=== PATIENT | male | born 1960 | race Caucasian/White ===

== ENCOUNTER → 2025-08-02 | Outpatient (CLI) | payer MEDICAID, SELFPAY ==
--- NOTE | 2025-08-02 15:45 | XR_ITS ---
EXAMINATION: MRI shoulder, right without intravenous contrast Date and time: August 02, 2025, 1533 hours INDICATIONS: Patient fell April 22, 2025 with injury of the shoulder, shoulder pain decreased range of motion stiffness swelling TECHNIQUE AND FINDINGS: Multiple axial sagittal coronal MR shoulder images obtained without contrast 4 cm full-thickness rotator cuff tear There is retraction of the musculotendinous junction Distance between the humeral head and the acromion 6.6 mm Prominent tendinosis of the rotator cuff Subscapularis tendon is intact No humeral head fracture or bone contusion Moderate osteoarthritis glenohumeral joint Biceps Superior labral anchor intact, long head of the biceps in the bicipital groove Labrum margins appear intact IMPRESSION: 4 cm full-thickness rotator cuff tear
== END | disposition home or self-care (01) ==
LOC: SMRI 14:55
PROVIDERS: PCP Family Medicine; Referring Provider Physician Assistant; Visit Provider Physician Assistant
DX: S46.011A Strain of muscle(s) and tendon(s) of the rotator cuff of right shoulder, initial encounter (principal); W19.XXXA Unspecified fall, initial encounter
CPT/HCPCS: 73221

== ENCOUNTER 2025-09-29 12:10 | Day surgery (SDC) | payer MEDICAID, SELFPAY ==
--- NOTE | 2025-09-28 12:53 | EKG_ITS ---
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
[2025-09-28 13:00] VITALS: BMI 24.5
[2025-09-28 16:05] LABS: Basophils # (Auto) 0.1 Thou/mm3 (0.0-0.2); Basophils % (Auto) 1 % (0-2.5); Eosinophils # (Auto) 0.3 Thou/mm3 (0.0-0.5); Eosinophils % (Auto) 5 % (0-10); Hematocrit 43.3 % (41.0-53.0); Hemoglobin 15.1 g/dL (13.5-16.0); Immature Granulocytes Auto 0.01 Thou/mm3 (0.00-0.00); Lymphocytes # (Auto) 1.9 Thou/mm3 (1.0-4.8); Lymphocytes % (Auto) 31 % (10-50); Mean Corpuscular HGB Conc 34.9 g/dl (31.0-37.0); Mean Corpuscular Hemoglobin 32.6 pg (25.0-35.0); Mean Corpuscular Volume 94 fL (80-100); Monocytes # (Auto) 0.4 Thou/mm3 (0.0-0.8); Monocytes % (Auto) 7 % (0-12); Neutrophils # (Auto) 3.4 Thou/mm3 (1.8-7.7); Neutrophils % (Auto) 56 % (37-80); Nucleated Red Blood Cell # 0.00 Thou/mm3 (0.00-0.00); Nucleated Red Blood Cell % 0 /100 WBC (0); Platelet Count 255 Thou/mm3 (140-440); RDW Standard Deviation 43.1 fL (35.1-43.9); Red Blood Count 4.63 Miln/mm3 (4.50-5.90); White Blood Count 6.0 Thou/mm3 (3.8-10.6)
[2025-09-28 16:08] LABS: INR 1.0 (0.9-1.3); Partial Thromboplastin Time 27.8 Seconds (22.0-36.0); Prothrombin Time 10.6 Seconds (9.0-12.2)
[2025-09-28 16:20] LABS: Alanine Aminotransferase 14 U/L (10-49); Albumin, Serum 4.8 gm/dL (3.4-4.8); Albumin/Globulin Ratio 1.5 (1.2-2.2); Alkaline Phosphatase 98 U/L (46-116); Anion Gap 11 (7-16); Aspartate Amino Transferase 21 U/L (0-34); BUN/Creatinine Ratio 18 Ratio (12-20); Bilirubin,Total 0.6 mg/dL (0.3-1.2); Blood Urea Nitrogen 16 mg/dL (9-23); Calcium 9.4 mg/dL (8.3-10.6); Calcium (Corrected) 9.4 mg/dL (8.5-10.1); Carbon Dioxide 26.6 mMol/L (20.0-31.0); Chloride 105 mMol/L (98-107); Creatinine (Component) 0.9 mg/dL (0.6-1.3); Estimated Creatinine Clearance 63.2 mL/min (>60); Globulin 3.2 gm/dL (2.3-3.5); Glucose 90 mg/dL (74-106); Osmolality,Calculated 286 (275-295); Potassium 4.2 mMol/L (3.4-5.1); Sodium 143 mMol/L (136-145); Total Protein 8.0 gm/dL (5.7-8.2); eGFR > 60 See Note
[2025-09-29] VITALS (8 sets, daily range): BP systolic 125–139; BP diastolic 72–91; PULSE 57–78; RESP 12–18; TEMP 36.2–36.4; O2SAT 95–100; BMI 24.3
--- NOTE | 2025-09-29 15:07 | PD.SUROPNT ---
Date of Procedure 09/29/25 Pre Op Diagnosis 1. Right rotator cuff tear 2 right shoulder impingement syndrome Post Op Diagnosis Same Procedure 1. Excision lateral end of the clavicle 2. Excision coracoacromial ligament 3. Acromioplasty 4. Repair of rotator cuff 5. 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 Beside that the anterior acromial process was touching the rotator cuff. The coracoacromial ligament was also abutting the rotator cuff. The rotator cuff was torn Procedure Description The patient was given general endotracheal anesthesia. Right shoulder block was also given. Once satisfactory anesthesia was achieved patient was put in about 45?? sitting position with sandbag underneath the right shoulder blade. The part was thoroughly prepped and draped. A skin incision was made at the AC joint extending proximally towards the neck for a half inches and distally towards the arm for about couple of inches. Deeper dissection was carried out. Bleeding vessels were electrocoagulated as and when encountered. The soft tissue was reflected. Following that AC joint was exposed and AC joint was exposed. It revealed quite arthritic AC joint with inferior spur present coming out from lateral end of the clavicle. The deltoid muscle was reflected from the anterior and lateral aspect of the acromial process. It revealed a 2 mm anterior osteophytes and 2 mm lateral osteophytes coming out from the acromial process. Following that a periosteal elevator was placed underneath the lateral end of the clavicle and lateral 3-4 mm was excised. The coracoacromial ligament was removed. With the help of curved osteotome the undersurface of the Acromial processes was chiseled out. That made more room between the superior surface of the head of the humerus and undersurface of the acromial process. Following that the rotator cuff was inspected. It revealed big oval tear, however most of the fibers were attached to the greater tuberosity. Wound was irrigated with antibiotic solution every 4-5 minutes. The left shoulder was manipulated at this time. The rotator cuff tear was repaired with 2-0 Vicryl. 2 drill holes were made on the acromial process and deltoid muscle was stitched back to it. Some reinforcement sutures were placed. The subcutaneous tissue was then closed with the help of 2-0 Vicryl and 3-0 Vicryl in layers. The subcu tissue was closed with the help of Monocryl. After cleaning the wound with hydrogel proximal solution and sterile dressing was applied. Prineo tape was applied. Patient was taken to the recovery room in good condition. Estimated blood loss 20 mL. Prognosis in this case is good. Anesthesia GETA and other Pathology / specimen None Estimated Blood Loss 20 Surgeon Cole Donaldson MD Surgical Staff Operation Date: 09/29/25 14:00 Case Staff Anesthesiologist: Gonzalo Lynch RNdirector of plant operations: Frieda Singh
--- NOTE | 2025-09-29 15:25 | SUR.PHASEI ---
1525: Pt. AAOx4, vitals stable, breathing unlabored, no complaint of pain or nausea, dressing to right shoulder CDI, no active bleed noted, bilateral radial pulses strong and regular, cap refill to bilateral hands less than 3 seconds, report received from MD Lynch and Sang MAK.
--- NOTE | 2025-09-29 15:29 | ESHP_ITS ---
RE: DIMITRI ARCOS : 1960 DATE OF ADMISSION: 09/29/2025 Patient came to my office on 09/28/2025 for detailed preop history and physical examination. HISTORY OF PRESENT COMPLAINT: Patient presented to me earlier with a history of pain in the left shoulder. Pain radiates towards the arm as well as towards the neck. Patient is unable to sleep. Patient graded intensity of pain to be 8-9 out of 10. Unable to raise the right arm above the shoulder level. Quality of life and activity of daily living is affected. Patient wants something to be done about it. PAST MEDICAL HISTORY: No history of diabetes mellitus, high blood pressure, asthma, seizure, chest pain, myocardial infarction, bleeding disorder. PAST SURGICAL HISTORY: Nil. DRUG HISTORY: Nil. FAMILY HISTORY AND SOCIAL HISTORY: Noncontributory. PHYSICAL EXAMINATION: GENERAL: Normal-built person. VITAL SIGNS: Pulse 84 per minute. Blood pressure 136/68. NECK: Soft, supple, no mass felt. Trachea is centrally placed. CARDIOVASCULAR SYSTEM: First and second heart sound normal. No murmur heard. RESPIRATORY SYSTEM: Bilateral vesicular breath sounds. Chest clear. ABDOMINAL EXAMINATION: Soft, scaphoid. No mass felt. Bowel sounds present. EXTREMITIES: Right Shoulder Examination: Revealed 2+ tenderness at AC joint and also at subacromial subbursal space. Active range of motion 0-80 degrees of abduction, 0-80 degrees of forward flexion. No further range of motion is possible. Internal rotation is severely restricted and painful. Randi test, drawer Randi test, drop arm test and impingement tests are positive. MRI SCAN: Confirms DJD at AC joint with torn rotator cuff and coracoacromial ligament was abutting the rotator cuff. Since patient is symptomatic and affecting quality of life, therefore right rotator cuff repair with Miriam procedure was discussed and advised. With the help of pictures, diagram and posters, it was explained to him. I explained that I do open surgery. Patient is also told that in case he wants arthroscopic surgery, I may have to refer him out. However, patient chose to proceed with open surgery. Risks with anesthesia was explained and that includes but not limited to reaction to anesthetic agents, cardiac arrest, rarely it might be fatal. Risks with operation includes infection and if that happens patient may need further surgical procedure. Other risks include delayed healing, wound dehiscence, etc. Sometime rare complication happens and if that happens that has to be taken care of. Indeed physical therapy is very important component for successful outcome and good result after this kind of procedure and full cooperation will be very helpful for a good outcome. Patient is fully aware of that. Accordingly, surgery is booked for 09/29/2025. Appropriate lab work is done. DT: 15:15:54 TT: 15:28:00 Ref: [id number] - TID: [id number]
--- NOTE | 2025-09-29 16:30 | SUR.PHASEII ---
1630: Pt. AAOx4, vitals stable, breathing unlabored, no complaint of pain or nausea, dressing to right shoulder CDI, no active bleed noted, pt. able to wiggle bilateral fingers, cap refill to bilateral hands less than 3 seconds, bilateral radial pulses strong and regular, pt. tolerated sips of juice well, pt. ambulated to wheelchair with steady gait and no assist, no complications. Gave discharge instructions to the pt. and his ride in [place], per pt. request, both verbalized understanding and had no further questions. Pt. left with all personal belongings.
--- NOTE | 2025-10-06 13:51 | PD.ANESPROG ---
Documentation for date of: 10/06/25 POST ANESTHESIA NOTE: Patient had general LMA anesthesia and R interscalene block for R shoulder surgery on 09/29/25. I just called his number for follow up but no answer. Gonzalo Lynch MD Anesthesia Progress Note Progress Note Most recent Vital Signs: Last Vital Signs Temp 97.2 F 09/29/25 16:20 Pulse 78 09/29/25 16:20 Resp 16 09/29/25 16:20 BP 138/85 H 09/29/25 16:20 Pulse Ox 99 09/29/25 16:20
== END 2025-09-29 16:30 | disposition home or self-care (01) ==
PROVIDERS: Anesthesiology; PCP Family Medicine; Referring Provider Orthopaedic Surgery; Visit Provider Orthopaedic Surgery
PROC: (CPT 23412; principal; 2025-09-29 13:45)
DX: M75.101 Unspecified rotator cuff tear or rupture of right shoulder, not specified as traumatic (principal); M75.41 Impingement syndrome of right shoulder; M19.011 Primary osteoarthritis, right shoulder; Z01.810 Encounter for preprocedural cardiovascular examination; M25.711 Osteophyte, right shoulder
CPT/HCPCS: 23412; 23120; 36415; 80053; 85025; 85610; 85730; 93005; A4649; J0690; J1100; J1580; J2250; J2704; J2765; J2795; J3010; J3490